=== PATIENT | female | born 1955 | race Caucasian/White ===

== ENCOUNTER 2016-12-17 11:59 | Day surgery (SDC) | payer MEDICARE, MEDICAID ==
[~2016-12-17 11:59] MED LIST: CENTRUM SILVER1 EAC6 PO; FOLIC ACID1 M1 PO; IBUPROFEN800 M1 PO; OXYCONTIN10 M2 PO; RESTORIL30 M1 PO; SYNTHROID100 MC1 PO; ULTRAM50 M1 PO; VITAMIN B1 PO; VITAMIN E1000 UNI2 PO; [UNRECOGNIZED DRUG - CODE] PO
[2016-12-17] MEDS ORDERED: OXYCODONE HCL5 M1 PO (12:14)
[2017-03-18] MEDS ORDERED: NEURONTIN300 M1 PO (17:38)
[2017-03-18] MEDS ORDERED: CYMBALTA60 M1 PO (17:38)
[2017-03-18] MEDS ORDERED: DOXEPIN HCL10 M1 PO (17:41)
[2017-03-18] MEDS ORDERED: OXYCONTIN10 M2 PO (17:42)
[2017-03-18] MEDS ORDERED: MACROBID 100 M100 M1 PO (17:43)
[2017-03-18] MEDS ORDERED: RESTORIL7.5 MG/CAP PO (17:43)
[2017-03-18] MEDS ORDERED: CLOBETASOL PROP15 G2 TP (17:44)
[2017-03-23] MEDS ORDERED: MOTRIN IB200 M1 PO (10:45)
[2017-03-23] MEDS ORDERED: SENNA-S TABLET1 EAC3 PO (10:45)
== END 2016-12-18 15:50 ==
LOC: SHSC 11:59 → ORE 14:38 → PACU 17:10 → 5EB 18:00
PROC: 0PSG04Z Reposition Left Humeral Shaft with Internal Fixation Device, Open Approach (ICD-10-PCS; principal; 2016-12-18)
DX: S42.202A Unspecified fracture of upper end of left humerus, initial encounter for closed fracture (principal); E03.9 Hypothyroidism, unspecified; S42.252A Displaced fracture of greater tuberosity of left humerus, initial encounter for closed fracture; Z90.710 Acquired absence of both cervix and uterus; Z90.49 Acquired absence of other specified parts of digestive tract; Z90.89 Acquired absence of other organs; Z98.890 Other specified postprocedural states; Z80.42 Family history of malignant neoplasm of prostate; Z79.891 Long term (current) use of opiate analgesic; Z79.899 Other long term (current) drug therapy; Z80.8 Family history of malignant neoplasm of other organs or systems; Z80.0 Family history of malignant neoplasm of digestive organs; Z83.3 Family history of diabetes mellitus; Z82.49 Family history of ischemic heart disease and other diseases of the circulatory system; Z88.8 Allergy status to other drugs, medicaments and biological substances; Z87.442 Personal history of urinary calculi
CPT/HCPCS: J0690; J1170; J2250; J3010

== ENCOUNTER 2017-01-30 02:13 | Observation (INO) | payer MEDICARE, MEDICAID ==
[~2017-01-30 02:13] MED LIST changes: +OXYCODONE HCL5 M1 PO
[2017-01-30] MEDS ORDERED: IBUPROFEN800 M1 PO (02:34)
[2017-01-30] MEDS ORDERED: NIGHTTIME SLEEP25 M2 PO (02:56)
[2017-01-30] MEDS ORDERED: BENADRYL25 M3 PO (02:57)
[2017-01-30 03:19] LABS: BASO % 1.6 % (0-2); BASO ABSOLUTE COUNT 0.1 tho/cmm (0.0-0.2); EOS % 1.9 % (0-7); EOSINOPHIL ABSOLUTE COUNT 0.1 tho/cmm (0.0-0.7); HGB-HEMOGLOBIN 12.4 gm/dl (12.0-15.5); IMMATURE GRANULOCYTES ABSOLUTE 0.02 tho/cmm (0-0.03); IMMATURE GRANULOCYTES PERCENT 0.3 % (0-0.3); LYMPH % 41.7 % (20-45); LYMPH ABSOLUTE COUNT 2.7 tho/cmm (0.8-4.5); MCH (MEAN CORPUSCULAR HGB) 28.7 pg (28.0-32.0); MCHC MEAN CORPUSCULAR HGB CONC 32.6 % (32.0-36.0); MEAN PLATELET VOLUME 10.2 cmc (9.4-12.4); MONO % 7.6 % (0-12); MONOCYTE ABSOLUTE COUNT 0.5 tho/cmm (0.0-1.2); NEUTROPHILS % 46.9 % (40-80); PLATELET COUNT 252 tho/cmm (150-450); RED BLOOD COUNT 4.32 mil/cmm (4.00-5.20); RED CELL DISTRIBUTION WIDTH 15.2 % (12.4-16.4); WHITE BLOOD COUNT 6.4 tho/cmm (4.0-10.0)
[2017-01-30 03:31] LABS: ACETAMINOPHEN LEVEL 20.1 ug/ml (10-30); ALB/GLOB RATIO 0.8 (0.8-2.0); ALBUMIN 3.4 g/dl (3.5-5.0); ALCOHOL (ETOH) <10 mg/dl (<10); ALKALINE PHOSPHATASE 125 U/L (33-138); ALT/SGPT 19 U/L (12-78); ANION GAP 15 mmol/L (0-20); AST/SGOT 19 U/L (10-40); BILIRUBIN,TOTAL 0.2 mg/dl (0-1.5); BLOOD UREA NITROGEN 23 mg/dl (6-24); CARBON DIOXIDE-VENOUS 23 mmol/L (22-32); CHLORIDE 106 mmol/l (96-110); CREATININE 1.08 mg/dl (0.50-1.10); GLUCOSE 97 mg/dL (70-110); POTASSIUM 3.4 mmol/L (3.7-5.1); SODIUM 141 mmol/L (135-145); eGFR VALUE FOR BLACK 64 mL/Min
[2017-01-30 03:34] LABS: SALICYLATE <2.8 mg/dl (2.8-20)
[2017-01-30 03:57] LABS: URINE BILIRUBIN NEGATIVE (NEG); URINE BLOOD NEGATIVE (NEG); URINE GLUCOSE (UA) NEGATIVE (NEG); URINE KETONE NEGATIVE (NEG); URINE LEUKOCYTE ESTERASE NEGATIVE (NEG); URINE NITRITE NEGATIVE (NEG); URINE PROTEIN NEGATIVE (NEG)
[2017-01-30 03:58] LABS: URINE APPEARANCE CLEAR; URINE COLOR PALE YELLOW
[2017-01-30 19:57] LABS: ACETAMINOPHEN LEVEL <2.1 ug/ml (10-30); ALT/SGPT 19 U/L (12-78); AST/SGOT 23 U/L (10-40)
[2017-01-31 06:13] LABS: BASO ABSOLUTE COUNT 0.1 tho/cmm (0.0-0.2); EOS % 1.3 % (0-7); EOSINOPHIL ABSOLUTE COUNT 0.1 tho/cmm (0.0-0.7); HCT-HEMATOCRIT 39.5 % (34.0-49.0); HGB-HEMOGLOBIN 12.9 gm/dl (12.0-15.5); IMMATURE GRANULOCYTES ABSOLUTE 0.01 tho/cmm (0-0.03); IMMATURE GRANULOCYTES PERCENT 0.1 % (0-0.3); LYMPH % 32.1 % (20-45); LYMPH ABSOLUTE COUNT 2.1 tho/cmm (0.8-4.5); MCH (MEAN CORPUSCULAR HGB) 28.5 pg (28.0-32.0); MCHC MEAN CORPUSCULAR HGB CONC 32.7 % (32.0-36.0); MCV (MEAN CELL VOLUME) 87.4 fl (82.0-96.0); MEAN PLATELET VOLUME 9.7 cmc (9.4-12.4); MONO % 7.2 % (0-12); MONOCYTE ABSOLUTE COUNT 0.5 tho/cmm (0.0-1.2); NEUTROPHIL ABSOLUTE COUNT 3.9 tho/cmm (1.6-8.0); NEUTROPHIL-AUTOMATED 3.9 tho/cmm (1.6-8.0); NEUTROPHILS % 58.3 % (40-80); PLATELET COUNT 218 tho/cmm (150-450); RED BLOOD COUNT 4.52 mil/cmm (4.00-5.20); RED CELL DISTRIBUTION WIDTH 15.1 % (12.4-16.4); WHITE BLOOD COUNT 6.7 tho/cmm (4.0-10.0)
[2017-01-31 06:27] LABS: ANION GAP 12 mmol/L (0-20); BLOOD UREA NITROGEN 9 mg/dl (6-24); CALCIUM 8.7 mg/dl (8.5-10.5); CARBON DIOXIDE-VENOUS 23 mmol/L (22-32); CHLORIDE 110 mmol/l (96-110); CREATININE 0.75 mg/dl (0.50-1.10); GLUCOSE 111 mg/dL (70-110); POTASSIUM 3.4 mmol/L (3.7-5.1); SODIUM 142 mmol/L (135-145); eGFR VALUE FOR BLACK >90 mL/Min
[2017-01-31] MEDS ORDERED: CYMBALTA30 M1 PO (12:32)
[2017-03-18] MEDS ORDERED: CYMBALTA60 M1 PO (17:38)
[2017-03-18] MEDS ORDERED: NEURONTIN300 M1 PO (17:38)
[2017-03-18] MEDS ORDERED: DOXEPIN HCL10 M1 PO (17:41)
[2017-03-18] MEDS ORDERED: OXYCONTIN10 M2 PO (17:42)
[2017-03-18] MEDS ORDERED: MACROBID 100 M100 M1 PO (17:43)
[2017-03-18] MEDS ORDERED: RESTORIL7.5 MG/CAP PO (17:43)
[2017-03-18] MEDS ORDERED: CLOBETASOL PROP15 G2 TP (17:44)
[2017-03-23] MEDS ORDERED: SENNA-S TABLET1 EAC3 PO (10:45)
[2017-03-23] MEDS ORDERED: MOTRIN IB200 M1 PO (10:45)
== END 2017-01-31 14:40 ==
LOC: EDMED 02:13 → EMR2 06:47 → CAR1 11:10
PROVIDERS: Emergency Medicine; Registered Nurse; ADMIT Internal Medicine
DX: T45.0X1A Poisoning by antiallergic and antiemetic drugs, accidental (unintentional), initial encounter (principal); R41.0 Disorientation, unspecified; F32.9 Major depressive disorder, single episode, unspecified; E03.9 Hypothyroidism, unspecified; F10.20 Alcohol dependence, uncomplicated; F11.20 Opioid dependence, uncomplicated; F17.210 Nicotine dependence, cigarettes, uncomplicated; E87.6 Hypokalemia; Z79.899 Other long term (current) drug therapy; Z98.890 Other specified postprocedural states; Z90.49 Acquired absence of other specified parts of digestive tract; Z90.710 Acquired absence of both cervix and uterus
CPT/HCPCS: G0378; G0480; J7030